=== PATIENT | male | born 1970 | race Hispanic/Latino ===

== ENCOUNTER 2024-04-03 13:21 | Emergency (ER) | payer BC, OTHER ==
[~2024-04-03] VITALS: Ht 203.2 cm; Wt 127.0 kg
[2024-04-03] MEDS: ketOROlac 15MG/ML VIAL (15MG/ML) IV STA (13:53)
[2024-04-03] MEDS: 0.9%NACL 1000ML 1,000 ML IV STA (13:53)
[2024-04-03 14:07] LABS: APPEARANCE,URINE CLEAR (CLEAR); BILIRUBIN,URINE NEGATIVE (NEGATIVE); COLOR,URINE LIGHT-YELLOW (YELLOW); GLUCOSE, URINE (UA) NEGATIVE (NEGATIVE); KETONES,URINE NEGATIVE (NEGATIVE); LEUKOCYTE ESTERASE ,URINE 25 Leu/uL (NEGATIVE); NITRATE,URINE NEGATIVE (NEGATIVE); OCCULT BLOOD,URINE LARGE (NEGATIVE); PROTEIN,URINE 50 mg/dL (NEGATIVE); UROBILINOGEN,URINE 0.2 mg/dL (0.2-1.0)
[2024-04-03 14:10] LABS: ADD UA MICROSCOPIC YES
[2024-04-03 14:12] LABS: BASOPHILS # (AUTO) 0.04 K/uL (0.00-0.20); BASOPHILS % (AUTO) 0.2 % (0.0-5.0); EOSINOPHILS # (AUTO) 0.21 K/uL (0.00-0.70); EOSINOPHILS % (AUTO) 1.2 % (0.0-8.0); HEMATOCRIT 41.5 % (42-54); IMMATURE GRANULOCYTE ABSOLUTE 0.08 K/uL (0-1); LYMPHOCYTES # (AUTO) 1.3 K/uL (1.0-4.8); LYMPHOCYTES % (AUTO) 6.9 % (21.0-51.0); MEAN CORPUSCULAR HEMOGLOBIN 24.4 pg (27.0-33.0); MEAN CORPUSCULAR HGB CONC 31.8 g/dL (32.0-36.0); MEAN CORPUSCULAR VOLUME 76.7 fL (79-99); MONOCYTES # (AUTO) 1.3 K/uL (0.1-1.0); MONOCYTES % (AUTO) 6.8 % (3.0-13.0); NEUTROPHILS # (AUTO) 15.4 K/uL (1.8-7.7); NEUTROPHILS % (AUTO) 84.5 % (40.0-77.0); PLATELET COUNT (AUTO) 273 K/uL (130-400); RED BLOOD CELL COUNT(AUTO) 5.41 MIL/uL (4.50-6.20); RED CELL DISTRIBUTION WIDTH 15.9 % (11.0-15.5); WHITE BLOOD COUNT (AUTO) 18.3 K/uL (4.8-10.8)
[2024-04-03 14:12] LABS: RBC,URINE TNTC /HPF (0-1); WBC,URINE 26-50 /HPF (0-1)
[2024-04-03 14:22] LABS: CREATININE 0.8 mg/dL (0.5-1.3)
[2024-04-03 14:25] LABS: POTASSIUM 2.4 mmol/L (3.5-5.1)
--- NOTE | 2024-04-03 14:25 | HMCIMG ---
CT ABDOMEN/PELVIS W/O CONTRAST CLINICAL HISTORY: hematuria COMPARISON: None TECHNIQUE: Sequential axial images of abdomen and pelvis without contrast and with sagittal and coronal reconstructions. CT was performed with one or more of the following dose reduction techniques: automated exposure control, adjustment of the mA and/or kV according to patient size, or use of iterative reconstruction technique FINDINGS: There is eventration left diaphragm and atelectasis. The liver and spleen are unremarkable. There is gallbladder calculus but no acute inflammatory changes. The pancreas and adrenal glands are unremarkable. The kidneys are unremarkable. There is mild stranding adjacent bladder was worrisome for cystitis. There is no identified bowel obstruction. There is no bulky abdominal or retroperitoneal lymphadenopathy. There is no free air or free fluid. The bony structures demonstrate mild degenerative changes in the spine. IMPRESSION: Findings most consistent with cystitis.
[2024-04-03] MEDS: PoTASSium BIcarbonate/CIT AC 25 MEQ TABLET.EFF PO STA (14:31)
[2024-04-03] MEDS: cefTRIAXone 1G VIAL IVPB STA (14:31)
--- NOTE | 2024-04-03 14:33 | ERN ---
ED Note History of Present Illness Stated Complaint: BLOOD IN URINE WITH PAIN Chief Complaint: Blood in Urine: Time Seen by MD: 13:22 Time Seen by Midlevel: 13:26 Dictation: 53-year-old male with a history of hypertension diabetes coming in with compla ints of urinary frequency that started last night and today began with dysuria and hematuria. Patient states he was swollen year ago he had kidney stones. Denies having any recent fever, nausea, vomiting. Allergies: Coded Allergies: lisinopril (Unverified Allergy, Unknown, 04/03/24) Past Medical History Past Medical History: Diabetes-Type II, Hypertension, Other Additional Past Medical Hx: HERNIA Surgical History: None Review of System Dictation Constitutional: Negative for fever,chills, and weight loss Eyes: Negative for injury, pain,redness, and discharge ENT: Negative for injury,pain or swelling Cardiovascular: Negative for chest pain, palpitations, and edema Respiratory: Negative for shortness of breath, cough, and wheezing, Abdomen/GI: Negative for abdominal pain, nausea, vomiting, diarrhea, and constipation Back: Negative for injury and pain : Negative for injury, complaining of dysuria and hematuria MS/Extremity: Negative for injury and deformity Skin: Negative for rash, and discoloration Neuro: Negative for headache, weakness, numbness, tingling, and seizure Psych: Negative for suicide ideation, homicidal ideation, and hallucinations Review of Systems: was completed Initial Vital Sign VS Vital Signs Date Time Temp Pulse Resp B/P (MAP) Pulse Ox O2 Delivery O2 Flow Rate FiO2 04/03/24 13:32 98.4 86 18 160/90 98 Physical Exam Dictation General: awake, alert, NAD Head/Face: Normocephalic, atraumatic Eyes: PERRL, EOMI, vision at baseline ENT: oral cavity clear, TMs clear, no signs of infection Neck: Trachea midline, supple, no nuchal rigidity Cardiovascular: RRR, normal S1/S2, No MRGs, no JVD Respiratory: CTAB, no respiratory distress, No rales or wheezes Abdomen: Soft, non-tender, non-distended, normal bowel sounds, no guarding or rebound. No CVA tenderness Skin: Warm, dry, normal turgor, no rash MS/Extremity: Pulses equal, no cyanosis, neurovascular intact, FROM Neuro: COAx4, GCS 15, strength 5/5, CN 2-12 intact, normal cerebellar exam, normal gait, Psych: Normal behavior, mood, and affect normal Results (Laboratory/Radiology) Laboratory/Radiology Laboratory Tests Test 04/03/24 13:44 04/03/24 13:52 Urine Color LIGHT-YELLOW (YELLOW) Urine Appearance CLEAR (CLEAR) Urine pH 6.0 (5.0-8.0) Urine Specific [place] 1.018 (1.001-1.031) Urine Protein 50 mg/dL (NEGATIVE) H Urine Glucose (UA) NEGATIVE mg/dL (NEGATIVE) Urine Ketones NEGATIVE mg/dL (NEGATIVE) Urine Occult Blood LARGE (NEGATIVE) H Urine Nitrate NEGATIVE (NEGATIVE) Urine Bilirubin NEGATIVE mg/dL (NEGATIVE) Urine Urobilinogen 0.2 mg/dL (0.2-1.0) Urine Leukocyte Esterase 25 Camille/uL (NEGATIVE) H Urine RBC TNTC /HPF (0-1) H Urine WBC 26-50 /HPF (0-1) H Urine Bacteria None /HPF (None Seen) White Blood Count 18.3 K/uL (4.8-10.8) H Red Blood Count 5.41 MIL/uL (4.50-6.20) Hemoglobin 13.2 g/dL (14.0-18.0) L Hematocrit 41.5 % (42-54) L Mean Corpuscular Volume 76.7 fL (79-99) L Mean Corpuscular Hemoglobin 24.4 pg (27.0-33.0) L Mean Corpuscular Hemoglobin Concent 31.8 g/dL (32.0-36.0) L Red Cell Distribution Width 15.9 % (11.0-15.5) H Platelet Count 273 K/uL (130-400) Mean Platelet Volume 10.2 fL (7.5-10.5) Immature Granulocyte % (Auto) 0.4 % (0-1) Neutrophils (%) (Auto) 84.5 % (40.0-77.0) H Lymphocytes (%) (Auto) 6.9 % (21.0-51.0) L Monocytes (%) (Auto) 6.8 % (3.0-13.0) Eosinophils (%) (Auto) 1.2 % (0.0-8.0) Basophils (%) (Auto) 0.2 % (0.0-5.0) Neutrophils # (Auto) 15.4 K/uL (1.8-7.7) H Lymphocytes # (Auto) 1.3 K/uL (1.0-4.8) Monocytes # (Auto) 1.3 K/uL (0.1-1.0) H Eosinophils # (Auto) 0.21 K/uL (0.00-0.70) Basophils # (Auto) 0.04 K/uL (0.00-0.20) Absolute Immature Granulocyte (auto 0.08 K/uL (0-1) Nucleated Red Blood Cells 0.0 % (0.0-0.19) White Cell Morphology Comment See comments Red Blood Cell Morphology See comments Sodium Level 139 mmol/L (136-145) Potassium Level 2.4 mmol/L (3.5-5.1) *L Chloride Level 103 mmol/L (101-111) Carbon Dioxide Level 31 mmol/L (21-32) Blood Urea Nitrogen 12 mg/dL (7-18) Creatinine 0.8 mg/dL (0.5-1.3) Glomerular Filtration Rate Calc 105 mL/min (>90) Random Glucose 144 mg/dL (70-105) H Total Calcium 8.4 mg/dL (8.5-10.1) L Labs Reviewed?: Yes EKG Comment: EKGs showing sinus rhythm, nonspecific IVCD with LAD, ST elevation probably normal early patient pattern, at a rate of 81. No STEMI interpreted by ER MD CT Scan Comment: [place] [address] IMAGING REPORT Signed PATIENT: JEFF MEIER MR#: [id number] : 1970 SEX: M AGE: 53 LOCATION: [facility] ORDER 31 STATUS: REG ER REPORT#: [id number] SERVICE 29 REASON: hematuria ORDERING PHYSICIAN: CORINA MCGRAW NP PROCEDURE: ABD PEL WO - CT ABDOMEN/PELVIS W/O CONTRAST CT ABDOMEN/PELVIS W/O CONTRAST CLINICAL HISTORY: hematuria COMPARISON: None TECHNIQUE: Sequential axial images of abdomen and pelvis without contrast and with sagittal and coronal reconstructions. CT was performed with one or more of the following dose reduction techniques: automated exposure control, adjustment of the mA and/or kV according to patient size, or use of iterative reconstruction technique FINDINGS: There is eventration left diaphragm and atelectasis. The liver and spleen are unremarkable. There is gallbladder calculus but no acute inflammatory changes. The pancreas and adrenal glands are unremarkable. The kidneys are unremarkable. There is mild stranding adjacent bladder was worrisome for cystitis. There is no identified bowel obstruction. There is no bulky abdominal or retroperitoneal lymphadenopathy. There is no free air or free fluid. The bony structures demonstrate mild degenerative changes in the spine. IMPRESSION: Findings most consistent with cystitis. DICTATED BY: KEVIN PATEL DO DATE: 04/03/24 142 ELECTRONICALLY SIGNED BY: KEVIN PATEL DO DATE: 04/03/24 142 ED Course ED Course Orders Procedure Category Date Status Time Cbc With Differential LAB 04/03/24 Complete 13:30 Basic Metabolic Panel LAB 04/03/24 Complete 13:30 Urinalysis Profile LAB 04/03/24 Complete 13:30 Ct Abdomen/Pelvis W/O CT 04/03/24 Resulted Contrast 13:30 0.9%Nacl 1000ml (Ns PHA 04/03/24 Complete 1000ml) 13:30 Ketorolac PHA 04/03/24 Complete Tromethamine 15mg/Ml 13:30 Culture Urine SOFIA 04/03/24 Logged 14:12 Ceftriaxone 1g Vial PHA 04/03/24 Complete (Rocephine 1g Inj) 14:26 Potassium Bicarb/Cit PHA 04/03/24 Complete Ac 25meq (K-Lyte Ta 14:26 12 Lead Ekg Tracing- EKG 04/03/24 Logged Technical 15:39 Current Medications Medications (Trade) Dose Ordered Sig/Rebecca Route PRN Reason Start Time Stop Time Status Last Admin Dose Admin Ceftriaxone Sodium (ROCEphine 1G INJ) 1 gm ONCE STAT IVPB 04/03/24 14:26 04/03/24 14:28 DC 04/03/24 14:31 Ketorolac Tromethamine (toRADol) 15 mg ONCE STAT IV 04/03/24 13:30 04/03/24 13:32 DC 04/03/24 13:53 Potassium Bicarbonate (K-Lyte Tablet Eff 25 Meq Tablet.eff) 50 meq ONCE STAT PO 04/03/24 14:26 04/03/24 14:28 DC 04/03/24 14:31 Sodium Chloride 1,000 ml @ 1,000 mls/hr Q1H STAT IV 04/03/24 13:30 04/03/24 14:29 DC 04/03/24 13:53 Vital Signs Date Time Temp Pulse Resp B/P (MAP) Pulse Ox O2 Delivery O2 Flow Rate FiO2 04/03/24 13:32 98.4 86 18 160/90 98 Medical Decision Making MDM 53-year-old male with a history of hypertension diabetes coming in with complaints of urinary frequency that started last night and today began with dysuria and hematuria. Patient states he was swollen year ago he had kidney stones. Denies having any recent fever, nausea, vomiting. MDM: 53-year-old male with a history of hypertension diabetes coming in with complaints of urinary frequency that started last night and today began with dysuria and hematuria. Patient states he was swollen year ago he had kidney stones. Denies having any recent fever, nausea, vomiting. CBC shows leukocytosis of 18, microcytic anemia hemoglobin of 13 and hematocrit of 41, no thrombocytopenia. Chemistry shows potassium of 2.4, replacement given in the emergency room, normal kidney function. Mild hyperglycemia at 1:44 a.m.. UA shows evidence of urinary tract infection of the hematuria. We will need real fluids, Rocephin and Toradol given in the ER. Patient states he feels better. Vital signs have remained stable, afebrile and non tachycardic. Discussed with patient about being admitted for IV antibiotics, patient states he just got a new job and can not miss and would like to try outpatient therapy 1st. Educated patient on red flag symptoms to return back to the ER like fever, nausea, vomiting or flank pain. Patient verbalized understanding, answered all questions. Differential diagnosis: Rationale: Tests considered and ordered secondary to shared decision making include: Previous outside records reviewed: Old ER visits. Risk of complication and/or morbidity or mortality of patient management: None Medications-Per medication reconciliation Need for hospitalization: Patient does not meet criteria for hospitalization. Need for emergency major/minor surgery: No There are no social concerns with this patient. Prescription drug management Prescriptions will include symptomatic care Patient's prior external medical records from other ER visits were reviewed by me as indicated. Prior testing and results from previous visits were reviewed. Prior tests were taken into account with medical decision making and resource utilization, independent historian/historians were used to obtain complete medical history. I independently interpreted the test that were performed, results were reviewed by me and considered findings on radiology if ordered. Medical management and examination interpretation discussions were had by me with other qualified healthcare professionals as indicated for the patient's care. DX & DISP Disposition: Discharge Departure Impression: Primary Impression: Complicated urinary tract infection Condition: Stable Scripts Cefuroxime Axetil (Cefuroxime) 500 Mg Tablet 1 TAB PO BID for 10 Days, #20 TAB 0 Refills Prov: CORINA MCGRAW NP 04/03/24 Additional Instructions: Please return to the emergency room if you start to develop any fevers, nausea, vomiting. Complete a dose of antibiotics. Follow up with PCP in 1-2 days. Referrals: NONE (PCP) Time of Disposition: 16:00 I have reviewed the case, and I agree with, Diagnosis and Plan CORINA MCGRAW NP Apr 03, 2024 14:33
[2024-04-03] MEDS ORDERED: CEFU500T67 PO (16:00)
[2024-04-03 16:05] VITALS: BP 118/63; PULSE 77; RESP 18; TEMP 98.1; O2SAT 98
--- NOTE | 2024-04-03 20:56 | EKG ---
[facility] Test Date: 2024-04-03 Test Time: 15:45:32 Pat Name: JEFF MEIER Department: [facility] Room: Gender: M [employer]: [id number] : 1970 Requested By: CORINA MCGRAW Order Number: [id number] Reading MD: Shari Kumar Measurements Intervals [place] Rate: 81 P: -42 NV: 178 QRS: -48 QRSD: 127 T: 59 QT: 391 QTc: 453 Interpretive Statements Sinus rhythm Nonspecific IVCD with LAD ST elev, probable normal early repol pattern No previous ECG available for comparison Electronically Signed On 04-04-2024 09:16:20 [employer] by Shari Kumar Please click the below link to view image of tracing.
[2024-04-04] MEDS ORDERED: HYDR25TA PO (08:31)
[2024-04-04] MEDS ORDERED: TIRZ10PE (08:31)
[2024-04-04] MEDS ORDERED: LOSA100T59 PO (08:31)
[2024-04-04] MEDS ORDERED: METO-408 PO (08:31)
[2024-04-05] MEDS ORDERED: TIRZ10PE SQ (10:56)
== END 2024-04-03 16:06 | disposition home or self-care (01) ==
LOC: EDH 13:21
DX: N39.0 Urinary tract infection, site not specified (principal); E11.9 Type 2 diabetes mellitus without complications; I10 Essential (primary) hypertension; Z88.8 Allergy status to other drugs, medicaments and biological substances
CPT/HCPCS: 99284; 74176; 96365; 96361; 96375; 80048; 85025; 87086; 81001; 36415; 93005; J1885; J0696